=== PATIENT | female | born 1960 | race Caucasian/White ===

== ENCOUNTER 2021-02-20 12:08 | Emergency (ER) | payer OTHER ==
[~2021-02-20] VITALS: Ht 149.9 cm; Wt 78.9 kg
[2021-02-20 12:10] VITALS: BP_SYST 150
--- NOTE | 2021-02-20 12:10 | NUR ---
Patient to ER bed Hallway 1 to gown for evaluation. Side rails up.
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
--- NOTE | 2021-02-20 12:14 | NUR ---
ER at bedside examining patient.
[2021-02-20] MEDS ORDERED: KETOROLAC TROMETHAMINE 30 MG VIAL IM ONE (12:30)
--- NOTE | 2021-02-20 12:33 | NUR ---
Pt has full ROM of left upper extremity cap refill is less than 2 seconds no loss of sensation pulses 2+ and palpable.
--- NOTE | 2021-02-20 12:48 | NUR ---
Patient transported to radiology via gurney, accompanied by tatianna.
--- NOTE | 2021-02-20 13:30 | NUR ---
Pt sleeping in [place] no distress noted. Breathing is even and unlabored.
--- NOTE | 2021-02-20 13:58 | NUR ---
Dr. Johnson speaking with pt.
[2021-02-20] MEDS ORDERED: METH-634 PO ×2 (14:45→15:48)
[2021-02-20] MEDS ORDERED: NAPR-1172 PO ×2 (14:46→15:48)
[2021-02-20 15:32] VITALS: BP_SYST 133
--- NOTE | 2021-02-20 15:33 | NUR ---
Patient given written and verbal discharge instructions and verbalizes understanding. ER MD discussed with patient the results and treatment provided. Patient in stable condition. ID arm band removed. Rx of Robaxin and naproxen given. Patient educated on pain management and to follow up with PMD. Pain Scale 0/10. Opportunity for questions provided and answered. Medication side effect fact sheet provided.
== END 2021-02-20 15:32 | disposition home or self-care (01) ==
LOC: SED 12:08
DX: S29.012A Strain of muscle and tendon of back wall of thorax, initial encounter (principal); S40.012A Contusion of left shoulder, initial encounter; I10 Essential (primary) hypertension; E11.9 Type 2 diabetes mellitus without complications; J44.9 Chronic obstructive pulmonary disease, unspecified; K21.9 Gastro-esophageal reflux disease without esophagitis; Z88.2 Allergy status to sulfonamides; Z88.8 Allergy status to other drugs, medicaments and biological substances; V49.19XA Passenger injured in collision with other motor vehicles in nontraffic accident, initial encounter; Y93.89 Activity, other specified; Y92.89 Other specified places as the place of occurrence of the external cause; Y99.8 Other external cause status
CPT/HCPCS: 71045; 72080; 72170; 73060; 96372; 99284; J1885